=== PATIENT | female | born 1945 | race Caucasian/White ===

== ENCOUNTER → 2020-02-26 13:18 | Outpatient (CLI) | payer OTHER, SELFPAY ==
--- NOTE | ~2020-02-26 | DEXA_ITS ---
Bone Density Report Name: Guerline Nam Age: 74 Sex: Female Ethnicity: White Date of : 1945 Indication: osteopenia; hysterectomy; postmenopausal Referring Provider: JANNETH JIANG Study: Bone densitometry was performed. Exam Date: February 26, 2020 Accession number: [id number] Bone Density: Region BMD T-score Z-score Classification AP Spine (L1-L4) 0.953 -0.9 1.6 Normal Femoral Neck (Left) 0.637 -1.9 0.2 Osteopenia Total Hip (Left) 0.843 -0.8 1.0 Normal Femoral Neck (Right) 0.605 -2.2 -0.1 Osteopenia Total Hip (Right) 0.792 -1.2 0.6 Osteopenia Total Hip Mean 0.818 -1.0 0.8 Normal World Health Organization criteria for BMD impression classify patients as: Normal (T-score at or above -1.0), Osteopenia (T-score between -1.0 and -2.5), or Osteoporosis (T-score at or below -2.5). 10-year Fracture Risk(1): Major Osteoporotic Fracture 14% Hip Fracture 4.0% Reported Risk Factors: [place] (), Neck BMD=0.605, BMI=25.5 (1) FRAX(R) Version 3.08. Fracture probability calculated for an untreated patient. Fracture probability may be lower if the patient has received treatment. Previous Exams: Region Exam Age BMD T-score BMD Change BMD Change Date g/cm2 vs Baseline vs Previous AP Spine(L1-L4) 02/26/2020 74 0.953 -0.9 -0.058* -0.037* 11/26/2017 72 0.990 -0.5 -0.020 -0.063* 09/30/2014 69 1.053 0.1 0.042* 0.010 09/08/2012 67 1.043 0.0 0.032* 0.037* 08/24/2010 65 1.005 -0.4 -0.005 -0.017 07/28/2008 63 1.023 -0.2 0.012 0.012 05/04/2005 59 1.011 -0.3 Total Hip(Left) 02/26/2020 74 0.843 -0.8 -0.095* -0.010 11/26/2017 72 0.852 -0.7 -0.085* -0.105* 09/30/2014 69 0.957 0.1 0.020 0.075* 09/08/2012 67 0.882 -0.5 -0.055* 0.076* 08/24/2010 65 0.807 -1.1 -0.131* -0.037* 07/28/2008 63 0.844 -0.8 -0.093* -0.093* 05/04/2005 59 0.937 0.0 Total Hip(Right) 02/26/2020 74 0.792 -1.2 -0.056* -0.002 11/26/2017 72 0.794 -1.2 -0.054* -0.079* 09/30/2014 69 0.873 -0.6 0.025 0.057* 09/08/2012 67 0.816 -1.0 -0.032* 0.037* 08/24/2010 65 0.779 -1.3 -0.069* -0.040* 07/28/2008 63 0.819 -1.0 -0.029* -0.029* 05/04/2005 59 0.848 -0.8 *Denotes significance at 95% confidence
--- NOTE | ~2020-02-26 | MM_ITS ---
EXAMINATION: MM screening yenni BI w pam HISTORY: Screening TECHNIQUE: Craniocaudal and mediolateral oblique 3-D tomosynthesis images were obtained and synthetic 2-D images were generated. CAD analysis was submitted and interpreted. COMPARISON: Comparison to multiple prior studies sequentially, with oldest reviewed study dated 11/12. BREAST PARENCHYMAL COMPOSITION: The breasts are heterogeneously dense, which may obscure small masses . FINDINGS: There is no evidence of suspicious mass, calcification, or architectural distortion to sugg est malignancy in either breast. There has been no suspicious interval change. IMPRESSION: 1. No mammographic evidence of malignancy. 2. Recommend routine screening mammography in one year. BI-RADS Category 1: Negative Reviewed, dictated and finalized at location A.
== END ==
PROVIDERS: PCP Family Medicine Adolescent Medicine; Visit Provider Obstetrics & Gynecology Gynecology
DX: Z12.31 Encounter for screening mammogram for malignant neoplasm of breast (principal); Z78.0 Asymptomatic menopausal state; M85.89 Other specified disorders of bone density and structure, multiple sites
CPT/HCPCS: 77063; 77067; 77080

== ENCOUNTER → 2021-02-27 11:34 | Outpatient (CLI) | payer OTHER, SELFPAY ==
--- NOTE | ~2021-02-27 | MM_ITS ---
EXAMINATION: MM screening yenni BI w pam HISTORY: Screening TECHNIQUE: Craniocaudal and mediolateral oblique 3-D tomosynthesis images were obtained and synthetic 2-D images were generated. CAD analysis was submitted and interpreted. COMPARISON: Comparison to multiple prior studies sequentially, with oldest reviewed study dated 11/12. BREAST PARENCHYMAL COMPOSITION: The breasts are heterogeneously dense, which may obscure small masses . FINDINGS: There is no evidence of suspicious mass, calcification, or architectural distortion to sugg est malignancy in either breast. There has been no suspicious interval change. IMPRESSION: 1. No mammographic evidence of malignancy. 2. Recommend routine screening mammography in one year. BI-RADS Category 1: Negative Reviewed, dictated and finalized at location A.
== END ==
PROVIDERS: PCP Family Medicine Adolescent Medicine; Visit Provider Obstetrics & Gynecology Gynecology
DX: Z12.31 Encounter for screening mammogram for malignant neoplasm of breast (principal)
CPT/HCPCS: 77063; 77067

== ENCOUNTER → 2022-05-29 11:35 | Outpatient (CLI) | payer OTHER, SELFPAY ==
--- NOTE | ~2022-05-29 | MM_ITS ---
EXAMINATION: MM screening yenni BI w pam HISTORY: Screening mammogram TECHNIQUE: Craniocaudal and mediolateral oblique 3-D tomosynthesis images were obtained and synthetic 2-D images were generated. CAD analysis was submitted and interpreted. COMPARISON: 02/27/2021, 02/26/2020, 12/02/2018 bilateral screening mammogram examinations BREAST PARENCHYMAL COMPOSITION: The breasts are heterogeneously dense, which may obscure small masses . FINDINGS: There is no evidence of suspicious mass, calcification, or architectural distortion to sugg est malignancy in either breast. There has been no suspicious interval change. IMPRESSION: 1. No mammographic evidence of malignancy. 2. Recommend routine screening mammography in one year. BI-RADS Category 1: Negative Reviewed, dictated and finalized at location A. 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
--- NOTE | ~2022-05-29 | DEXA_ITS ---
Bone Density Report Name: MARYAM BETHEA Age: 76 Sex: Female Ethnicity: White Date of : 1945 Indication: osteopenia; hysterectomy; postmenopausal Referring Provider: JANNETH JIANG Study: Bone densitometry was performed. Exam Date: May 29, 2022 Accession number: [id number] Bone Density: Region BMD T-score Z-score Classification AP Spine (L1-L4) 0.972 -0.7 1.9 Normal Femoral Neck (Left) 0.631 -2.0 0.2 Osteopenia Total Hip (Left) 0.860 -0.7 1.3 Normal Femoral Neck (Right) 0.605 -2.2 0.0 Osteopenia Total Hip (Right) 0.807 -1.1 0.8 Osteopenia Total Hip Mean 0.834 -0.9 1.1 Normal World Health Organization criteria for BMD impression classify patients as: Normal (T-score at or above -1.0), Osteopenia (T-score between -1.0 and -2.5), or Osteoporosis (T-score at or below -2.5). 10-year Fracture Risk(1): Major Osteoporotic Fracture 16% Hip Fracture 4.6% Reported Risk Factors: [place] (), Neck BMD=0.605, BMI=26.2 (1) FRAX(R) Version 3.08. Fracture probability calculated for an untreated patient. Fracture probability may be lower if the patient has received treatment. Previous Exams: Region Exam Age BMD T-score BMD Change BMD Change Date g/cm2 vs Baseline vs Previous AP Spine(L1-L4) 05/29/2022 76 0.972 -0.7 -0.038* 0.019 02/26/2020 74 0.953 -0.9 -0.058* -0.037* 11/26/2017 72 0.990 -0.5 -0.020 -0.063* 09/30/2014 69 1.053 0.1 0.042* 0.010 09/08/2012 67 1.043 0.0 0.032* 0.037* 08/24/2010 65 1.005 -0.4 -0.005 -0.017 07/28/2008 63 1.023 -0.2 0.012 0.012 05/04/2005 59 1.011 -0.3 Total Hip(Left) 05/29/2022 76 0.860 -0.7 -0.077* 0.018 02/26/2020 74 0.843 -0.8 -0.095* -0.010 11/26/2017 72 0.852 -0.7 -0.085* -0.105* 09/30/2014 69 0.957 0.1 0.020 0.075* 09/08/2012 67 0.882 -0.5 -0.055* 0.076* 08/24/2010 65 0.807 -1.1 -0.131* -0.037* 07/28/2008 63 0.844 -0.8 -0.093* -0.093* 05/04/2005 59 0.937 0.0 Total Hip(Right) 05/29/2022 76 0.807 -1.1 -0.041* 0.016 02/26/2020 74 0.792 -1.2 -0.056* -0.002 11/26/2017 72 0.794 -1.2 -0.054* -0.079* 09/30/2014 69 0.873 -0.6 0.025 0.057* 09/08/2012 67 0.816 -1.0 -0.032* 0.037* 08/24/2010 65 0.779 -1.3 -0.069* -0.040* 07/28/2008 63 0.819 -1.0
== END ==
PROVIDERS: PCP Family Medicine Adolescent Medicine; Visit Provider Obstetrics & Gynecology Gynecology
DX: Z12.31 Encounter for screening mammogram for malignant neoplasm of breast (principal); Z78.0 Asymptomatic menopausal state; M85.852 Other specified disorders of bone density and structure, left thigh; M85.851 Other specified disorders of bone density and structure, right thigh
CPT/HCPCS: 77063; 77067; 77080

== ENCOUNTER 2022-12-04 01:41 | Day surgery (SDC) | payer OTHER, SELFPAY ==
[2022-11-23 13:15] VITALS: BMI 26.2
[2022-12-04 08:19] VITALS: BP 132/93; PULSE 89; RESP 16; TEMP 36.1; O2SAT 99
[2022-12-04 08:39] LABS: Glucose Point of Care 131 mg/dl (65-105)
[2022-12-04] MEDS: LACTATED RINGERS 1,000 ML 150 ML IV CONT (08:39)
--- NOTE | 2022-12-04 09:05 | PM.HPGS ---
History of Present Illness History of Present Illness Consent: Risks, benefits, and alternatives have been discussed and questions answered. Patient agrees to proceed with procedure. Chief complaint: family hx colon ca Narrative: Guerline Nam is a 77 year old female Presents for screening colonoscopy. Patient's current weight appetite and bowel movements are normal. Patient is denies abdominal pain. She has had no bleeding. Family history is significant that her father had colon cancer. Previous colonoscopy 2017 revealed no polyps. Review of Systems Review of Systems: Review of systems noncontributory. [facility] Surgical History Surgical History History of appendectomy (2009) History of cholecystectomy History of hysterectomy with bilateral oophorectomy (1985) Family History Family History Father Bladder cancer Mother Acute myocardial infarction Sibling Carcinoma of colon Social History Social History (Updated 11/27/21 @ 09:21 by Nara Bergman MA) Smoking status: Never smoker Second hand tobacco smoke exposure: No Alcohol intake: never Substance use: never Substance use type: does not use Living arrangements: with family Occupation/Education: retired Gender identity (if verbalized by the patient): Female Sexual Orientation (if Verbalized by the Patient): Straight or Heterosexual Spiritual care concerns: No Agree to blood products: Yes Meds Home Medications and Allergies Home Medications Medication Instructions Recorded Confirmed Type aspirin 325 mg tablet,delayed 325 mg PO DAILY 11/27/21 11/23/22 History release calcium carbonate 600 mg calcium 600 mg PO DAILY 11/27/21 11/23/22 History (1,500 mg) tablet (Calcium) diphenhydramine 25 0.5 tablet PO QHS 11/27/21 11/23/22 History mg-acetaminophen 500 mg tablet (Night Time Pain Medicine) ergocalciferol (vitamin D2) 1,250 1,250 mcg PO .COMPLEX 11/27/21 11/23/22 History mcg (50,000 unit) capsule atorvastatin 20 mg tablet See Rx Instructions .Route 04/23/22 11/23/22 Rx .COMPLEX #90 tabs hydrochlorothiazide 12.5 mg tablet See Rx Instructions .Route 08/08/22 11/23/22 Rx .COMPLEX #90 tabs metformin 500 mg tablet,extended See Rx Instructions .Route 08/08/22 11/23/22 Rx release 24 hr .COMPLEX #180 tabs metoprolol succinate 100 mg See Rx Instructions .Route 08/08/22 12/04/22 Rx tablet,extended release 24 hr .COMPLEX #90 tabs losartan 50 mg tablet See Rx Instructions .Route 08/12/22 11/23/22 Rx .COMPLEX #90 tabs diltiazem HCl 240 mg See Rx Instructions .Route 10/07/22 11/23/22 Rx capsule,extended release 24 hr .COMPLEX #90 caps sodium,potassium,mag sulfates 17.5 See Rx Instructions PO .COMPLEX 10/26/22 Rx gram-3.13 gram-1.6 gram oral soln #354 mL (Suprep Bowel Prep Kit) alendronate 70 mg tablet 70 mg PO WEEKLY 11/23/22 11/23/22 History cholecalciferol (vitamin D3) 25 25 mcg PO DAILY 11/23/22 11/23/22 History mcg (1,000 unit) capsule metronidazole 500 mg tablet 500 mg PO WEEKLY 11/23/22 11/23/22 History Allergies Allergy/AdvReac Type Severity Reaction Status Date / Time adhesive tape Allergy Unknown RED-ITCHY Verified 12/04/22 08:18 Vital Signs Vital Signs - 24 hr 12/04/22 08:19 Temperature 97 F L Pulse Rate 89 Respiratory Rate 16 Blood Pressure 132/93 H Pulse Oximetry 99 Oxygen Delivery Room Air Exam Narrative: Physical exam reveals patient to be alert. Vital signs stable. HEENT exam is unremarkable. Patient is anicteric. Lungs are clear to auscultation and percussion. Heart is without murmur or extra sounds. Abdomen bowel sounds are present soft nontender with no organomegaly. Digital external rectal exam normal. Assessment and Plan Assessment and plan (1) Family history of colon cancer in father: Code(s): Z80.0 - Family hist
--- NOTE | 2022-12-04 09:33 | WPDANESEPPF ---
Anes - Initial Pre Proc Eval Procedure: Operation Date: 12/04/22 09:30 Proposed Procedures p Colonoscopy - Samuel Ramirez MD Date/Time: 12/04/22 09:33 Surgeon: Samuel Ramirez MD Pre Op Diagnosis: family hx colon ca Patient Data Age: 77 Gender: F Height: 1.6 m Weight: 65.5 kg Last Vital Signs Temp 97 F L 12/04/22 08:19 Pulse 89 12/04/22 08:19 Resp 16 12/04/22 08:19 BP 132/93 H 12/04/22 08:19 Pulse Ox 99 12/04/22 08:19 O2 Del Method Room Air 12/04/22 08:19 Allergies Allergy/AdvReac Type Severity Reaction Status Date / Time adhesive tape Allergy Unknown RED-ITCHY Verified 12/04/22 08:18 Home Medications Medication Instructions Recorded Confirmed Type aspirin 325 mg tablet,delayed 325 mg PO DAILY 11/27/21 11/23/22 History release calcium carbonate 600 mg calcium 600 mg PO DAILY 11/27/21 11/23/22 History (1,500 mg) tablet (Calcium) diphenhydramine 25 0.5 tablet PO QHS 11/27/21 11/23/22 History mg-acetaminophen 500 mg tablet (Night Time Pain Medicine) ergocalciferol (vitamin D2) 1,250 1,250 mcg PO .COMPLEX 11/27/21 11/23/22 History mcg (50,000 unit) capsule atorvastatin 20 mg tablet See Rx Instructions .Route 04/23/22 11/23/22 Rx .COMPLEX #90 tabs hydrochlorothiazide 12.5 mg tablet See Rx Instructions .Route 08/08/22 11/23/22 Rx .COMPLEX #90 tabs metformin 500 mg tablet,extended See Rx Instructions .Route 08/08/22 11/23/22 Rx release 24 hr .COMPLEX #180 tabs metoprolol succinate 100 mg See Rx Instructions .Route 08/08/22 12/04/22 Rx tablet,extended release 24 hr .COMPLEX #90 tabs losartan 50 mg tablet See Rx Instructions .Route 08/12/22 11/23/22 Rx .COMPLEX #90 tabs diltiazem HCl 240 mg See Rx Instructions .Route 10/07/22 11/23/22 Rx capsule,extended release 24 hr .COMPLEX #90 caps sodium,potassium,mag sulfates 17.5 See Rx Instructions PO .COMPLEX 10/26/22 Rx gram-3.13 gram-1.6 gram oral soln #354 mL (Suprep Bowel Prep Kit) alendronate 70 mg tablet 70 mg PO WEEKLY 11/23/22 11/23/22 History cholecalciferol (vitamin D3) 25 25 mcg PO DAILY 11/23/22 11/23/22 History mcg (1,000 unit) capsule metronidazole 500 mg tablet 500 mg PO WEEKLY 11/23/22 11/23/22 History Laboratory Tests 12/04/22 08:35 POC Capillary Glucose 131 H mg/dl (65-105) Patient hx anesthesia problems: none Family hx anesthesia problems: none Results Review: All pre-operative results and documents have been reviewed as part of the pre-operative evaluation. [facility] Surgical History Surgical History History of appendectomy (2009) History of cholecystectomy History of hysterectomy with bilateral oophorectomy (1985) Family History Family History Father Bladder cancer Mother Acute myocardial infarction Sibling Carcinoma of colon Social History Social History (Updated 11/27/21 @ 09:21 by Nara Bergman MA) Smoking status: Never smoker Second hand tobacco smoke exposure: No Alcohol intake: never Substance use: never Substance use type: does not use Living arrangements: with family Occupation/Education: retired Gender identity (if verbalized by the patient): Female Sexual Orientation (if Verbalized by the Patient): Straight or Heterosexual Spiritual care concerns: No Agree to blood products: Yes Anes - Eval Final PreProcedure Day of Procedure 12/04/22 09:33 Patient weight: normal Heart: regular rate and rhythm Lungs: clear to auscultation Airway: Mallampati scale class II Neurological: alert and oriented Last oral intake: >/= 8 hours ASA classification: III Emergent: no Anesthetic plan: proceed Anesthesia type and monitoring: general GIVS and standard monitoring Results Review: All pre-operative results and documents have been reviewed as part of the pre-operative evaluation. Informed Consent:
[2022-12-04 09:54] VITALS: BP 95/63; PULSE 82; RESP 20; O2SAT 96
[2022-12-04 10:04] VITALS: BP 117/80; PULSE 78; RESP 16; O2SAT 96
[2022-12-04 10:14] VITALS: BP 125/78; PULSE 76; RESP 21; O2SAT 98
== END 2022-12-04 10:35 | disposition home or self-care (01) ==
PROVIDERS: PCP Family Medicine Adolescent Medicine; Visit Provider Internal Medicine Gastroenterology
PROC: 0DJD8ZZ Inspection of Lower Intestinal Tract, Via Natural or Artificial Opening Endoscopic (ICD-10-PCS; CPT 45378; principal; 2022-12-04 09:30)
DX: Z12.11 Encounter for screening for malignant neoplasm of colon (principal); K62.1 Rectal polyp; K57.31 Diverticulosis of large intestine without perforation or abscess with bleeding; K64.8 Other hemorrhoids; Z80.0 Family history of malignant neoplasm of digestive organs; Z79.82 Long term (current) use of aspirin; Z79.84 Long term (current) use of oral hypoglycemic drugs
CPT/HCPCS: 45380; 82948; 88305; J2704; J7120

== ENCOUNTER → 2023-06-27 11:18 | Outpatient (CLI) | payer OTHER, SELFPAY ==
--- NOTE | ~2023-06-27 | MM_ITS ---
EXAMINATION: MM screening yenni BI w pam HISTORY: Screening mammogram TECHNIQUE: Craniocaudal and mediolateral oblique 3-D tomosynthesis images were obtained and synthetic 2-D images were generated. CAD analysis was submitted and interpreted. COMPARISON: 05/29/2022, 02/27/2021, 02/26/2020 bilateral screening mammogram examinations BREAST PARENCHYMAL COMPOSITION: There are scattered areas of fibroglandular density. FINDINGS: There is no evidence of suspicious mass, calcification, or architectural distortion to sugg est malignancy in either breast. There has been no suspicious interval change. IMPRESSION: 1. No mammographic evidence of malignancy. 2. Recommend routine screening mammography in one year. BI-RADS Category 1: Negative Reviewed, dictated and finalized at location A. 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
== END ==
PROVIDERS: PCP Obstetrics & Gynecology Gynecology; Visit Provider Obstetrics & Gynecology Gynecology
DX: Z12.31 Encounter for screening mammogram for malignant neoplasm of breast (principal)
CPT/HCPCS: 77063; 77067

== ENCOUNTER 2024-06-29 11:09 | Outpatient (CLI) | payer OTHER, SELFPAY ==
--- NOTE | ~2024-06-29 | MM_ITS ---
EXAMINATION: MM screening yenni BI w pam HISTORY: Screening TECHNIQUE: Craniocaudal and mediolateral oblique 3-D tomosynthesis images were obtained and synthetic 2-D images were generated. CAD analysis was submitted and interpreted. COMPARISON: No prior mammogram is available for comparison at this institution. BREAST PARENCHYMAL COMPOSITION: Dense: The breasts are heterogeneously dense, which may obscure small masses FINDINGS: There is no evidence of suspicious mass, calcification, or architectural distortion to sugg est malignancy in either breast. There has been no suspicious interval change. IMPRESSION: 1. No mammographic evidence of malignancy. 2. Recommend routine screening mammography in one year. BI-RADS Category 1: Negative Reviewed, dictated and finalized at location B. 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
== END 2024-06-29 11:10 | disposition home or self-care (01) ==
PROVIDERS: PCP Family Medicine Adolescent Medicine; Visit Provider Nurse Practitioner
DX: Z12.31 Encounter for screening mammogram for malignant neoplasm of breast (principal)
CPT/HCPCS: 77063; 77067

== ENCOUNTER 2024-09-16 09:22 | Outpatient (CLI) | payer OTHER, SELFPAY ==
--- NOTE | ~2024-09-16 | DEXA_ITS ---
Bone Density Report Name: MARYAM BETHEA Age: 79 Sex: Female Ethnicity: White Date of : 1945 Indication: postmenopausal; screening for osteoporosis; height loss; hysterectomy; Referring Provider: AXEL, DANNIELLE Study: Bone densitometry was performed. Exam Date: September 16, 2024 Accession number: [id number] Bone Density: Region BMD T-score Z-score Classification AP Spine(L1-L4) 0.997 -0.5 2.2 Normal Femoral Neck (Left) 0.643 -1.9 0.5 Osteopenia Total Hip (Left) 0.825 -1.0 1.1 Normal Femoral Neck (Right) 0.615 -2.1 0.2 Osteopenia Total Hip (Right) 0.796 -1.2 0.9 Osteopenia Total Hip Mean 0.810 -1.1 1.0 Osteopenia World Health Organization criteria for BMD impression classify patients as: Normal (T-score at or above -1.0), Osteopenia (T-score between -1.0 and -2.5), or Osteoporosis (T-score at or below -2.5). 10-year Fracture Risk(1): Major Osteoporotic Fracture 16% Hip Fracture 4.7% Reported Risk Factors: [place] (), Neck BMD=0.615, BMI=23.9 (1) FRAX(R) Version 3.08. Fracture probability calculated for an untreated patient. Fracture probability may be lower if the patient has received treatment. Clinical Information Provided by Patient: Has used the following medications: Vitamin D, Calcium Has the following medical conditions: Hysterectomy Patient maximum height was 63.5 Menopause Age: 40 No regular weight bearing exercise Drinks caffeinated beverages Onset of menses at age 10 Number of children 2 Impression: The patient has low bone mass, based on the Right Femoral Neck T-score. The patient has an estimated ten-year risk of hip fracture of 4.7% and an estimated ten-year risk of major fracture of 16%, based on the WHO FRAX algorithm. Discussion: BONE DENSITY IS LOW AT ONE OR MORE SKELETAL SITES. THE PATIENT'S BMD AND CLINICAL RISK FACTORS CONTRIBUTE TO THIS PATIENT'S INCREASED RISK OF FRACTURE. This patient's lowest T-score is low at one or more skeletal sites. It meets the World Health Organization's (WHO) criteria for ?low bone mass? (T-score between -1.0 and -2.5). The patient's 10-year risk of hip fracture as calculated by FRAX exceeds the threshold where pharmacological therapy is recommended by the National Osteoporosis Foundation (NOF). However, all treatment decisions require clinical judgment and consideration of individual patient factors, including patient preferences, comorbidities, previous drug use, risk factors not captured in the FRAX model (e.g., frailty, falls, vitamin D deficiency, increased bone turnover, interval significant decline in bone density) and possible under or overestimation of fracture risk by FRAX. The patient should follow a healthful lifestyle (good nutrition with adequate calcium and vitamin D, and appropriate weight-bearing exercise). Follow-Up: Consider a repeat BMD and Vertebral Fracture Assessment (VFA) exam in 2 years or sooner if medically necessary, to reassess this patient's status. Reported by: JASON on 09/16/2024 9:55:00 AM. Reviewed, dictated and finalized at location AArleen NÚÑEZ
--- OUTSIDE RECORDS SUMMARY | 2024-09-16 09:59 | XMS_ITS | Continuity of Care Document ---
Author Organization [facility] Address [address] [place] [address] Phone Care Team Providers Care Scagliola Mechanic Name Role Phone Erlinda Barksdale Unavailable Unavailable Advance Directives Directive Yes / No Effective Date File Name No Information Encounters Encounter Description Practice Location Reason(s) For Visit Diagnoses Date Provider Providers Copied on Encounter [facility], [address], [place], [place], [id number], [place] tel:[phone] [facility] No Information Jan-2 3-200 2 Apolonia Coffey. [address], [facility] [facility] [facility] [address] , [address], [place], [address], [place]. tel:[phone] Family History Family Member Type Diagnosis Age At Onset No Information Payers Payer name Insurance type Covered democrat ID Authoriza tion(s) No Information Social History Type Description Quantity Date Captured Comments Sex Female Smoking Status No Information Chief Complaint And Reason For Visit No Information Reason For Referral Reason For Referral No Information History Of Present Illness Encounter Date Complaint History Of Prese nt Illness No Information Functional Status Date Functional Assessmen t No Information Instructions Date Instruction Additional Infor mation No Information Assessments Type Assessment Date No Information Patient Care Teams Name Effective Dates (start - stop) Status Members No Information
--- OUTSIDE RECORDS SUMMARY | 2024-09-16 09:59 | XMS_ITS | Clinical Summary ---
Author Organization [facility] Address [address] [place] [address] Care Team Providers Care Veterinary Laboratory Diagnostician Name Role Phone Ludwig Cunha MD Primary Care Provider [phone] Allergies No known active allergies Medications diltiaZEM (CARDIZEM CD) 240 mg Controlled Delivery 24 hour capsule 03/29/2018 Active metFORMIN (GLUCOPHAGE XR) 500 mg Extended Release 24 hour tablet 04/06/2018 Active losartan-hydroCH LOROthiazide (HYZAAR) 50-12.5 mg tablet 04/21/2018 Active metoprolol succinate (TOPROL XL) 100 mg Extended Release 24 hour tablet 04/21/2018 Active atorvastatin (LIPITOR) 20 mg tablet 04/21/2018 Active FLUZONE HIGH-DOSE , PF, 180 mcg/0.5 mL Syringe syringe ADM 0.5ML IM UTD 0 03/13/2018 Active aspirin (ECOTRIN EC) 81 mg Tablet, Delayed Release (E.C.) Take 81 mg by mouth daily. Active calcium carbonate (CALCIUM 500 ORAL) Take 600 mg by mouth daily. Active ergocalciferol, vitamin D2, (VITAMIN D ORAL) Take by mouth. 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 Gender Identity Not on file Sexual Orientation Not on file Last Filed Vital Signs Vital Sign Reading Time Taken Comments Blood Pressure 140/88 12/10/2018 11:39 AM CDT Pulse 69 12/10/2018 11:39 AM CDT Temperature 36.5 C (97.7 F) 12/10/2018 11:39 AM CDT Respiratory Rate - - Oxygen Saturation 97% 12/10/2018 11: 39 AM CDT Inhaled Oxygen Concentration - - Weight 61.6 kg (135 lb 12.8 oz) 019 11:39 AM CDT Height 160 cm (5' 3 ) 12/10/2018 11:39 AM CDT Body Mass Index 24.06 12/10/2018 11:39 AM CDT Plan of Treatment Health Maintenance Due Date Last Done Comments DTAP/TDAP/TD VACCINES (1 - Tdap) 07/20/1963 PNEUMOCOCCAL VACCINE 50+ YEARS (1 of 1 - PCV) 07/19/18 95 ZOSTER VACCINE (1 of 2) 1994 OSTEOPOROSIS SCREENING 2009 RSV VACCINE (60+ or ) (1 - 1-dose 75+ series) 07/20/2019 INFLUENZA VACCINE (#1) 2023 Insurance MCR Care Teams Veterinary Laboratory Diagnostician Relationship Specialty Start Date End Date Ludwig Cunha MD PCP - General Family Practice 04/25/18
== END 2024-09-16 09:23 | disposition home or self-care (01) ==
LOC: ANHIMG 09:23
PROVIDERS: PCP Family Medicine Adolescent Medicine; Visit Provider Nurse Practitioner
DX: Z78.0 Asymptomatic menopausal state (principal); M85.88 Other specified disorders of bone density and structure, other site; M85.852 Other specified disorders of bone density and structure, left thigh; M85.851 Other specified disorders of bone density and structure, right thigh
CPT/HCPCS: 77080